=== PATIENT | female | born 1930 | race Hispanic/Latino ===

== ENCOUNTER → 2018-02-07 | Outpatient (CLI) | payer MEDICARE | END | disposition home or self-care (01) | LOC: OIH 14:09 | PROVIDERS: ATTEND Internal Medicine | DX: S52.135A Nondisplaced fracture of neck of left radius, initial encounter for closed fracture (principal); M53.3 Sacrococcygeal disorders, not elsewhere classified; M79.602 Pain in left arm; X58.XXXA Exposure to other specified factors, initial encounter; Y93.89 Activity, other specified; Y92.89 Other specified places as the place of occurrence of the external cause; Y99.8 Other external cause status | CPT/HCPCS: 72220; 73060; 73070; 73090 ==

== ENCOUNTER → 2018-03-09 | Outpatient (CLI) | payer MEDICARE | END | disposition home or self-care (01) | LOC: OIH 09:50 | PROVIDERS: ATTEND Internal Medicine | DX: M19.071 Primary osteoarthritis, right ankle and foot (principal); M85.871 Other specified disorders of bone density and structure, right ankle and foot; M77.31 Calcaneal spur, right foot; M25.471 Effusion, right ankle | CPT/HCPCS: 73600 ==

== ENCOUNTER → 2018-11-23 | Outpatient (CLI) | payer MEDICARE | END | disposition home or self-care (01) | LOC: SHCH 09:51 | PROVIDERS: ATTEND Internal Medicine Cardiovascular Disease | DX: I08.1 Rheumatic disorders of both mitral and tricuspid valves (principal); I27.20 Pulmonary hypertension, unspecified; Z95.2 Presence of prosthetic heart valve; Z95.0 Presence of cardiac pacemaker | CPT/HCPCS: 93306 ==